=== PATIENT | female | born 1945 | race Caucasian/White ===

== ENCOUNTER → 2019-07-21 | Outpatient (CLI) | payer MEDICARE, OTHER ==
--- NOTE | 2019-07-21 16:46 | REP ---
REASON FOR EXAM: Chronic pain. There are no priors for comparison. There is marked asymmetric hip joint space narrowing with prominent marginal osteophytosis. There is buttressing. There is no acute fracture, dislocation, or subluxation. IMPRESSION: Advanced degenerative changes. Electronically Signed by Ollie Shelton DO 07/21/2019 05:13 P
--- NOTE | 2019-07-22 07:18 | REP ---
REASON: Chronic pain There is syndesmophyte and partial syndesmophyte formation seen on the right side of the imaged portion of the thoracic spine and upper lumbar spine. The bones are demineralized. I cannot confirm pedicular integrity due to the marked chronic changes. There is advanced disc space narrowing at every level. There are advanced disc space narrowing at every level. There are advanced degenerative changes seen involving the facet joints bilaterally at every level. Marked chronic changes and exam limitations as described above. Consider MRI for further evaluation. Electronically Signed by Ollie Shelton DO 07/24/2019 10:51 A
== END ==
LOC: M RAD 13:18
PROVIDERS: ATTEND Chiropractor
DX: M54.5 Low back pain (principal)

== ENCOUNTER → 2019-08-17 | Outpatient (CLI) | payer OTHER ==
--- NOTE | 2019-08-22 00:45 | ECWPNPC ---
PATIENT NAME: LUCIO JUDD : 1945 GENDER: FEMALE VISIT DATE: 08/17/2019 DISCHARGE DATE: 08/17/19 1054 VISIT LOCKED DATE TIME: PHYSICIAN: LEVY MEJIA RESOURCE: LEVY MEJIA REASON FOR APPOINTMENT 1. BACK PAIN HISTORY OF PRESENT ILLNESS GENERAL: -74-YEAR-OLD FEMALE IN FOR INITIAL PAIN CONSULT. SHE RATES HER PAIN CURRENTLY AT A 7 OUT OF 10 AND DESCRIBES IT ACHING, CONTINUOUS, AND DULL. PATIENT HAS BEEN ON TRAMADOL IN THE PAST FOR HER PAIN AND ADMITS THAT THIS WAS INEFFECTIVE. SHE ALSO ADMITS TO SPINAL INJECTIONS IN THE PAST WHICH WERE INEFFECTIVE. FALL RISK SCREENING: SCREENING :NO FALLS REPORTED IN THE LAST YEAR PAIN SCREENING: PATIENT HAS A COMPLAINT OF ACUTE OR CHRONIC PAIN :YES LOCATION OF PAIN:LOW BACK INTENSITY OF PAIN (SCALE OF 1 TO 10):7 WHAT DOES YOUR PAIN FEEL LIKE:ACHING, CONTINOUS DULL DURATION:CONTINOUS, CONSTANT, ALL DAY PAIN IS INCREASED BY:ACTIVITIES PAIN IS DECREASED BY:USE OF PAIN MEDICATIONS, SITTING TYLENOL PAIN HAS INTERFERED WITH THE FOLLOWING:MOOD, WALKING ABILITY, RELATIONSHIP WITH OTHERS, ENJOYMENT OF LIFE PLAN/GOALS/TREATMENT/INTERVENTION/FOLLOW UP:SEE PLAN NURSING NOTE: - - -. PAIN CENTER INTAKE QUESTIONS: DO YOU HAVE A HISTORY OF MRSA? :NO DO YOU TAKE A BLOOD THINNERS? :NO DO YOU HAVE ANY BLEEDING DISORDERS? :NO ANY NEW NUMBNESS OR WEAKNESS IN YOUR LEGS OR ARMS? :NO ANY PACEMAKER,DEFIBRILLATOR, OR DORSAL COLUMN STIMULATOR? :NO DO YOU HAVE ANY RASHES OR OPEN SORES? :NO ARE YOU ALLERGIC TO IV DYE? :NO ARE YOU DIABETIC? :NO ANY NEW PROBLEMS WITH YOUR MEDICATIONS? :NO HAVE YOU RECEIVED A VACCINE IN THE PAST 30 DAYS? :NO DO YOU PLAN TO RECEIVE A VACCINE IN THE NEXT 21 DAYS? :NO DO YOU NEED ANY PRESCRIPTION? :NO DO YOU TAKE ANY IMMUNOSUPPRESSIVE MEDICATIONS? :NO IS THERE A CHANCE YOU COULD BE ? :NO ARE YOU BREAST FEEDING? :NO CURRENT MEDICATIONS TAKING CENTRUM SILVER - TABLET DIRECTED ORALLY TAKING VITAMIN D3 10 MCG (400 UNIT) TABLET 1 TABLET ORALLY ONCE A DAY TAKING COQ-10 100 MG CAPSULE 2 CAPSULE WITH A MEAL ORALLY ONCE A DAY TAKING VITAMIN B-6 100 MG TABLET 1 TABLET ORALLY ONCE A DAY TAKING SIMVASTATIN 20 MG TABLET 1 TABLET IN THE EVENING ORALLY ONCE A DAY TAKING LISINOPRIL 20 MG TABLET 1 TABLET ORALLY ONCE A DAY TAKING SYNTHROID 100 MCG TABLET 1 TABLET IN THE MORNING ON AN EMPTY STOMACH ORALLY ONCE A DAY; LOWELL TAKING MELATONIN 5 MG TABLET 1 TABLET IN THE EVENING ORALLY ONCE A DAY TAKING TYLENOL EXTRA STRENGTH 500 MG TABLET 1 TABLET WITH ANOTHER 1 1/2 TAB OF RAPID RELEIF ORALLY DAILY TAKING SERTRALINE HCL 50 MG TABLET 1 TABLET ORALLY ONCE A DAY MEDICATION LIST REVIEWED AND RECONCILED WITH THE PATIENT PAST MEDICAL HISTORY HYPOTHYROIDISM HYPERTENSION HYPERLIPIDEMIA INSOMNIA HISTORY OF HYPERTHYROIDISM, NOW S/P RADIOACTIVE IODINE 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 1 SON(S) , 2 DAUGHTER(S) . DENIES ANY FAMILY HISTORY OF CANCER. SOCIAL HISTORY GENERAL: TOBACCO USE ARE YOU A:NONSMOKER LATEX QUESTIONNAIRE LATEX ALLERGY : HAVE YOU EVER DEVELOPED ANY TYPE OF REACTION AFTER HANDLING LATEX PRODUCTS SUCH RUBBER GLOVES, CONDOMS, DIAPHRAGMS, BALLOONS, SOCKS, OR UNDERWEAR?NO LATEX ALLERGY : HAVE YOU EVER DEVELOPED ANY TYPE OF REACTION DURING OR AFTER DENTAL APPOINTMENT, VAGINAL/RECTAL EXAMINATION, SURGICAL PROCEDURE, OR ANY OTHER EXPOSURE?NO LATEX RISK : HAVE YOU EVER HAD ANY DIFFICULTY BREATHING OR HIVES AFTER EATING OR HANDLING ANY FRUITS, OR VEGETABLES; SUCH KIWI, BANANAS, STONE FRUITS, OR CHESTNUTSNO LATEX RISK : DO YOU HAVE A PREVIOUS PERSONAL HISTORY OF MORE THAN NINE SURGERIES, SPINA BIFIDA, OR REPEATED CATHERIZATIONS? NO LATEX RISK : ARE YOU FREQUENTLY EXPOSED TO LATEX PRODUCTS IN YOUR OCCUPATION?NO DATE ASKED : 08/17/2019 CAFFEINE CAFFEINE USE?YES 2 CUP DAILY SEXUAL HX HAD SEX IN THE LAST 12 MONTHS (VAGINAL, ORAL, OR ANAL)?NO HAVE YOU EVER HAD AN STD?NO HIV / HEP-C SCREENING HIV TEST OFFERED TO PATIENT:YES DATE OFFERED:07/05/2019 TEST ACCEPTED:NO HEP-C TEST OFFERED TO PATIENT:NO REASON:PATIENT DECLINED BROCHURE PROVIDED TO PATIENTYES ZOROASTRIAN [id number] NONE LANGUAGE LANGUAGES SPOKEN:SYRIAC EDUCATION LEVEL OF EDUCATION:COLLEGE LEARNING BARRIERS / SPECIAL NEEDS BARRIERS TO LEARNING?NO HEARING IMPAIRED?NO VISION IMPAIRED?YES COGNITIVELY IMPAIRED?NO :CORRECTIVE LENSES READINESS TO LEARN?YES LEARNING PREFERENCES?NO LEARNING CAPABILITIES PRESENT?YES EMOTIONAL BARRIERS?NO SPECIAL DEVICES?YES :CANE UNDERWEAR HEMMER NEEDED?NO DOMESTIC VIOLENCE STATUS: OCCUPATION: RETIRED. DIET: REGULAR. EXERCISE: NO REGULAR EXERCISE. MARITAL STATUS: . OTHERS AT HOME: CHILD. PAIN CLINIC PFS, CLERGY, PUBLIC HEALTH REFERRALS PFS REFERRAL NEEDED?NO CLERGY REFERRAL NEEDED?NO PUBLIC HEALTH REFERRAL NEEDED?NO WAS THE PROVIDER NOTIFIED OF ANY PERTINENT INFO?YES HAS THE PATIENT BEEN EDUCATED REGARDING HIS/HER PLAN OF CARE?YES HAS THE PATIENT BEEN EDUCATED REGARDING PAIN, THE RISK FOR PAIN, THE IMPORTANCE OF EFFECTIVE PAIN MANAGEMENT, AND THE PAIN ASSESSMENT PROCESS?YES HOSPITALIZATION/MAJOR DIAGNOSTIC PROCEDURE SURGERY RELATED REVIEW OF SYSTEMS CONSTITUTIONAL: ANY RECENT FEVER NO . CHILLS NO . WEIGHT CHANGE OF UNKNOWN REASONS NO . MUSCULOSKELETAL: ANY UNUSUAL JOINT PAIN OR SWELLING NOT MENTIONED NO . SYSTEMIC LUPUS NO . ANY NEUROMUSCULAR DISORDER NOT MENTIONED NO . LYME DISEASE NO . GASTROENTEROLOGY: ANY NEW CHANGE IN BOWEL CONTROL? NO . HISTORY OF LIVER DISORDER NOT MENTIONED NO . HISTORY OF UNUSUAL ABDOMINAL PAIN OR CRAMPING NOT MENTIONED NO . NO CONSTIPATION. GENITOURINARY: ANY NEW CHANGE IN BLADDER CONTROL? NO . ANY RENAL/KIDNEY CONDITON NOT MENTIONED NO . NEUROLOGY: HISTORY OF TBI NOT MENTIONED NO . OTHER NEW NUMBNESS OR PAIN PATTERNS NOT MENTIONED NO . NEW ONSET DIZZINESS OR NEUROLOGICAL CHANGES NOT MENTIONED NO . HISTORY OF SEVERE HEADACHES NOT MENTIONED NO . HISTORY OF STROKE OR NEUROLOGICAL DISORDER NOT MENTIONED NO . CARDIOLOGY: HEART SURGERY NO . CONGESTIVE HEART FAILURE/FLUID OVERLOAD NOT MENTIONED NO . HISTORY OF CHEST PAIN,IRREGULAR HEART BEAT NOT MENTIONED NO . RESPIRATORY: SHORTNESS OF BREATH ON EXERTION, WHEEZES, UNUSUAL COUGH NOT MENTIONED NO . ENDOCRINOLOGY: ADRENAL GLAND OR THYROID DISORDERS NOT MENTIONED NO . UNUSUAL URINATION, DIZZINESS OR LETHARGY NOT MENTIONED NO . VITAL SIGNS WT 177.6 LBS, HT 60 IN, BMI 34.68 INDEX, BP 164/80 MM HG, HR 88 /MIN, RR 18 /MIN, TEMP 96.1 F, OXYGEN SAT % 97%, SAFE IN ENV? (Y/N) Y, NA INITIALS SC 10:16NANA ASUMADU ENROLLMENT ELIGIBILITY REPRESENTATIVE. EXAMINATION GENERAL EXAMINATION: GENERALNO ACUTE DISTRESS, WELL NOURISHED AND HYDRATED. PSYCHAPPROPRIATE MOOD AND AFFECT . LUNGS:CLEAR TO AUSCULTATION BILATERALLY, NO WHEEZES, RHONCHI, RALES. HEART:NO MURMURS, REGULAR RATE AND RHYTHM. BACK:DENIES POINT TENDERNESS ALONG LUMBAR SPINE, SURROUNDING SKIN SHOWS NO ERYTHEMA, ECCHYMOSIS, INCREASED WARMTH, AND/OR SKIN ERUPTIONS NOTED. . MUSCULOSKELETAL:NOTABLE WEAKNESS OF BOTH LOWER EXTREMITIES . ASSESSMENTS CHRONIC BILATERAL LOW BACK PAIN - M54.5 (PRIMARY) TREATMENT CHRONIC BILATERAL LOW BACK PAIN START DICLOFENAC SODIUM TABLET DELAYED RELEASE, 50 MG, 1 TABLET, ORALLY, TWICE A DAY, 30 DAY(S), 60 START TIZANIDINE HCL TABLET, 2 MG, 1 TABLET NEEDED, ORALLY, THREE TIMES A DAY, 30 DAYS, 90 TABLET [facility] MRI LUMBAR W/O CONTRAST (CPT [id number] CLINICAL NOTES: 74-YEAR-OLD FEMALE IN FOR INITIAL PAIN CONSULT. GIVEN PRESENTING SYMPTOMS AND RESULTS OF PHYSICAL EXAMINATION RECOMMENDED DICLOFENAC 50 MG TWICE A DAY, AND TIZANIDINE 2 MG 3 TIMES A DAY WITH FOLLOW-UP IN ONE MONTH TO DETERMINE EFFICACY OF TREATMENT. PATIENT HAS EXPRESSED UNDERSTANDING OF AND WAS IN AGREEMENT WITH TREATMENT PLAN. GIVEN TIME TO ASK QUESTIONS AND EXPRESS CONCERNS. PROCEDURE CODES FA211 ESTABILISHED PATIENT [facility] CHARGE DISPOSITION & COMMUNICATION FOLLOW UP 4 WEEKS (REASON: LOW BACK PAIN, LS MRI) ELECTRONICALLY SIGNED BY TANIA OSHEA ON 08/21/2019 AT 08:41 AM EDT DISCLAIMER : THIS IS A VISIT SUMMARY EXTRACTED FROM THE [employer] CHART. IT IS NOT A COPY OF THE [employer] PROGRESS NOTE. JOVANI
== END ==
LOC: M PAIN 10:00
PROVIDERS: ATTEND Family Medicine
DX: M54.5 Low back pain (principal)

== ENCOUNTER → 2019-09-15 | Outpatient (CLI) | payer OTHER | LOC: M PAIN 09:15 | PROVIDERS: ATTEND Family Medicine | DX: M54.5 Low back pain (principal) ==

== ENCOUNTER → 2019-11-03 | Outpatient (CLI) | payer OTHER | LOC: M PAIN 10:22 | PROVIDERS: ATTEND Family Medicine | DX: M54.5 Low back pain (principal) ==

== ENCOUNTER → 2019-12-05 | Outpatient (CLI) | payer OTHER ==
--- NOTE | 2019-12-06 13:17 | ECWPNPC ---
PATIENT NAME: LUCIO JUDD : 1945 GENDER: FEMALE VISIT DATE: 12/05/2019 DISCHARGE DATE: 12/05/19 1437 VISIT LOCKED DATE TIME: PHYSICIAN: LEVY MEJIA PHYSICIAN PAGER NO: ACTIVE RESOURCE: LEVY MEJIA REASON FOR APPOINTMENT 1. BACK HISTORY OF PRESENT ILLNESS GENERAL: - 74-YEAR-OLD FEMALE IN FOR CHRONIC PAIN FOLLOW-UP. SHE RATES HER PAIN CURRENTLY AT A 5 OUT OF 10 AND DESCRIBES IT A DULL ACHE. PATIENT DOES ADMIT THAT HER PAIN IS NOT COVERED PRIOR TO SLEEP WITH HER CURRENT MEDICATION REGIMEN. SHE DOES FEEL THE MEDICATION IS HELPFUL HOWEVER. FALL RISK SCREENING: SCREENING :ONE FALL WITHOUT INJURY IN THE PAST YEAR PATIENT FELL A MONTH AGO, DID NOT SEEK MEDICAL TREATMENT. ONLY RECIEVED BRUISING. PAIN SCREENING: PATIENT HAS A COMPLAINT OF ACUTE OR CHRONIC PAIN :YES LOCATION OF PAIN:LOW BACK, LEFT HIP, LEG(S), KNEES INTENSITY OF PAIN (SCALE OF 1 TO 10):5 WHAT DOES YOUR PAIN FEEL LIKE:OTHER DULL ACHE DURATION:CONSTANT, AWAKENS FROM SLEEP PAIN IS INCREASED BY:ACTIVITIES, PROLONGED STANDING PAIN IS DECREASED BY:USE OF PAIN MEDICATIONS NURSING NOTE: -. PAIN CENTER INTAKE QUESTIONS: DO YOU HAVE A HISTORY OF MRSA? :NO DO YOU TAKE A BLOOD THINNERS? :NO DO YOU HAVE ANY BLEEDING DISORDERS? :NO ANY NEW NUMBNESS OR WEAKNESS IN YOUR LEGS OR ARMS? :NO ANY PACEMAKER,DEFIBRILLATOR, OR DORSAL COLUMN STIMULATOR? :NO DO YOU HAVE ANY RASHES OR OPEN SORES? :NO ARE YOU ALLERGIC TO IV DYE? :NO ARE YOU DIABETIC? :NO ANY NEW PROBLEMS WITH YOUR MEDICATIONS? :YES PATIENT STATES SHE IS TAKING 4 HYDROCODONE PILLS A DAY INSTEAD OF THE WRITTEN AMOUNT OF 3. SHE SAYS THE PAIN IS UNBEARABLE AND HAS TO TAKE AN EXTRA DOSE. PATIENT WOULD LIKE TO DISCUSS INCREASE IN MEDICATION OR SOMETHING ELSE TO GO WITH THE HYDROCODONE. HAVE YOU RECEIVED A VACCINE IN THE PAST 30 DAYS? :NO DO YOU PLAN TO RECEIVE A VACCINE IN THE NEXT 21 DAYS? :YES PATIENT INTENDS TO GET A FLU SHOT SOON. DO YOU NEED ANY PRESCRIPTION? :NO DO YOU TAKE ANY IMMUNOSUPPRESSIVE MEDICATIONS? :NO IS THERE A CHANCE YOU COULD BE ? :NO ARE YOU BREAST FEEDING? :NO CURRENT MEDICATIONS TAKING CENTRUM SILVER - TABLET DIRECTED ORALLY TAKING VITAMIN D3 10 MCG (400 UNIT) TABLET 1 TABLET ORALLY ONCE A DAY TAKING COQ-10 100 MG CAPSULE 2 CAPSULE WITH A MEAL ORALLY ONCE A DAY TAKING VITAMIN B-6 100 MG TABLET 1 TABLET ORALLY ONCE A DAY TAKING SIMVASTATIN 20 MG TABLET 1 TABLET IN THE EVENING ORALLY ONCE A DAY TAKING LISINOPRIL 20 MG TABLET 1 TABLET ORALLY ONCE A DAY TAKING SYNTHROID 100 MCG TABLET 1 TABLET IN THE MORNING ON AN EMPTY STOMACH ORALLY ONCE A DAY; LOWELL TAKING MELATONIN 5 MG TABLET 1 TABLET IN THE EVENING ORALLY ONCE A DAY TAKING SERTRALINE HCL 50 MG TABLET 1 TABLET ORALLY ONCE A DAY TAKING TIZANIDINE HCL 2 MG TABLET 1 TABLET NEEDED ORALLY THREE TIMES A DAY TAKING HYDROCODONE-ACETAMINOPHEN 5-325 MG TABLET 1 TABLET NEEDED ORALLY THREE TIMES A DAY NOT-TAKING TYLENOL EXTRA STRENGTH 500 MG TABLET 1 TABLET WITH ANOTHER 1 1/2 TAB OF RAPID RELEIF ORALLY DAILY NOT-TAKING DICLOFENAC SODIUM 50 MG TABLET DELAYED RELEASE 1 TABLET ORALLY TWICE A DAY MEDICATION LIST REVIEWED AND RECONCILED WITH THE PATIENT PAST MEDICAL HISTORY HYPOTHYROIDISM HYPERTENSION HYPERLIPIDEMIA INSOMNIA HISTORY OF HYPERTHYROIDISM, NOW S/P RADIOACTIVE IODINE 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 1 SON(S) , 2 DAUGHTER(S) . DENIES ANY FAMILY HISTORY OF CANCER. SOCIAL HISTORY GENERAL: TOBACCO USE ARE YOU A:NONSMOKER LATEX QUESTIONNAIRE LATEX ALLERGY : HAVE YOU EVER DEVELOPED ANY TYPE OF REACTION AFTER HANDLING LATEX PRODUCTS SUCH RUBBER GLOVES, CONDOMS, DIAPHRAGMS, BALLOONS, SOCKS, OR UNDERWEAR?NO LATEX ALLERGY : HAVE YOU EVER DEVELOPED ANY TYPE OF REACTION DURING OR AFTER DENTAL APPOINTMENT, VAGINAL/RECTAL EXAMINATION, SURGICAL PROCEDURE, OR ANY OTHER EXPOSURE?NO LATEX RISK : HAVE YOU EVER HAD ANY DIFFICULTY BREATHING OR HIVES AFTER EATING OR HANDLING ANY FRUITS, OR VEGETABLES; SUCH KIWI, BANANAS, STONE FRUITS, OR CHESTNUTSNO LATEX RISK : DO YOU HAVE A PREVIOUS PERSONAL HISTORY OF MORE THAN NINE SURGERIES, SPINA BIFIDA, OR REPEATED CATHERIZATIONS? NO LATEX RISK : ARE YOU FREQUENTLY EXPOSED TO LATEX PRODUCTS IN YOUR OCCUPATION?NO DATE ASKED : 12/05/2019 CAFFEINE CAFFEINE USE?YES 2 CUP DAILY SEXUAL HX HAD SEX IN THE LAST 12 MONTHS (VAGINAL, ORAL, OR ANAL)?NO HAVE YOU EVER HAD AN STD?NO HIV / HEP-C SCREENING HIV TEST OFFERED TO PATIENT:YES DATE OFFERED:07/05/2019 TEST ACCEPTED:NO HEP-C TEST OFFERED TO PATIENT:NO REASON:PATIENT DECLINED BROCHURE PROVIDED TO PATIENTYES [employer]NA[employer]IST [id number] NONE LANGUAGE LANGUAGES SPOKEN:NIGERIAN EDUCATION LEVEL OF EDUCATION:COLLEGE LEARNING BARRIERS / SPECIAL NEEDS BARRIERS TO LEARNING?NO HEARING IMPAIRED?NO VISION IMPAIRED?YES COGNITIVELY IMPAIRED?NO :CORRECTIVE LENSES READINESS TO LEARN?YES LEARNING PREFERENCES?NO LEARNING CAPABILITIES PRESENT?YES EMOTIONAL BARRIERS?NO SPECIAL DEVICES?YES :CANE MANAGER GOVERNMENT NEEDED?NO DOMESTIC VIOLENCE STATUS: DO YOU FEEL SAFE IN YOUR ENVIRONMENT?YES OCCUPATION: RETIRED. DIET: REGULAR. EXERCISE: NO REGULAR EXERCISE. MARITAL STATUS: . OTHERS AT HOME: CHILD. PAIN CLINIC PFS, CLERGY, PUBLIC HEALTH REFERRALS PFS REFERRAL NEEDED?NO CLERGY REFERRAL NEEDED?NO PUBLIC HEALTH REFERRAL NEEDED?NO WAS THE PROVIDER NOTIFIED OF ANY PERTINENT INFO?YES HAS THE PATIENT BEEN EDUCATED REGARDING HIS/HER PLAN OF CARE?YES HAS THE PATIENT BEEN EDUCATED REGARDING PAIN, THE RISK FOR PAIN, THE IMPORTANCE OF EFFECTIVE PAIN MANAGEMENT, AND THE PAIN ASSESSMENT PROCESS?YES ADVANCE DIRECTIVE ADVANCE DIRECTIVE DISCUSSED WITH PATIENT:YES DAUGHTERSHRUTHI HOSPITALIZATION/MAJOR DIAGNOSTIC PROCEDURE SURGERY RELATED REVIEW OF SYSTEMS CONSTITUTIONAL: ANY RECENT FEVER NO . CHILLS NO . WEIGHT CHANGE OF UNKNOWN REASONS NO . GASTROENTEROLOGY: NEW UNEXPLAINABLE CHANGES IN BOWEL CONTROL NO . CONSTIPATION NO . GENITOURINARY: ANY NEW CHANGE IN BLADDER CONTROL? NO . NEUROLOGY: NEW ONSET DIZZINESS OR NEUROLOGICAL CHANGES NOT MENTIONED NO . NEW NUMBNESS OR PAIN PATTERNS NOT MENTIONED AND PERTINENT TO TODAY'S VISIT NO . CARDIOLOGY: NEW CHEST PRESSURE NO . NEW CHEST PAIN NO . RESPIRATORY: UNEXPLAINABLE COUGH NO . NEW SHORTNESS OF BREATH NO . VITAL SIGNS WT 177.8 LBS, HT 60 IN, BMI 34.72 INDEX, BP 159/84 MM HG, HR 82 /MIN, RR 18 /MIN, TEMP 97.0 F, OXYGEN SAT % 98%, SAFE IN ENV? (Y/N) YES, NA INITIALS AW 1330, REVIEWED BY: DM. EXAMINATION GENERAL EXAMINATION: GENERALNO ACUTE DISTRESS, WELL NOURISHED AND HYDRATED. PSYCHAPPROPRIATE MOOD AND AFFECT . LUNGS:CLEAR TO AUSCULTATION BILATERALLY, NO WHEEZES, RHONCHI, RALES. HEART:NO MURMURS, REGULAR RATE AND RHYTHM. ASSESSMENTS LUMBAGO WITH SCIATICA, LEFT SIDE - M54.42 (PRIMARY) TREATMENT LUMBAGO WITH SCIATICA, LEFT SIDE INCREASE HYDROCODONE-ACETAMINOPHEN TABLET, 7.5-325 MG, 1 TABLET NEEDED, ORALLY, THREE TIMES A DAY, 30 DAYS, 90 CLINICAL NOTES: 74 OLD FEMALE IN FOR CHRONIC PAIN FOLLOW-UP. GIVEN PRESENTING SYMPTOMS RECOMMEND INCREASING NORCO 7.5/325 3 TIMES A DAY WITH FOLLOW-UP IN ONE MONTH TO DETERMINE EFFICACY TREATMENT. PATIENT HAS EXPRESSED UNDERSTANDING OF AND WAS IN AGREEMENT WITH TREATMENT PLAN. GIVEN TIME TO ASK QUESTIONS AND EXPRESS CONCERNS. , ISTOP REGISTRY REVIEWED AND DEMONSTRATES COMPLLIANCE. (REF # [id number] ) BRINGS IN MEDICATIONS WHICH IS APPROPRIATE FOR WHAT WAS DISPENSED. RECENT URINE TOXICOLOGY REVIEWED. NO UNAUTHORIZED MEDICATIONS. NO ILLICIT SUBSTANCES AND PRESCRIBED MEDICATIONS WERE PRESENT. PREVENTIVE MEDICINE PAIN CLINIC TEACHING: THE PATIENT HAS BEEN EDUCATED REGARDING PAIN, THE RISK FOR PAIN, THE IMPORTANCE OF EFFECTIVE PAIN MANAGEMENT, AND THE PAIN ASSESSMENT PROCESS. : DISCUSSED CARE PLAN WITH PATIENT, PATIENT VERBALIZES UNDERSTANDING. PROCEDURE CODES FA211 ESTABILISHED PATIENT [facility] CHARGE DISPOSITION & COMMUNICATION FOLLOW UP 4 WEEKS (REASON: BACK PAIN, MEDICATION INCREASE) ELECTRONICALLY SIGNED BY TANIA OSHEA ON 12/06/2019 AT 10:09 AM EDT DISCLAIMER : THIS IS A VISIT SUMMARY EXTRACTED FROM THE [employer] CHART. IT IS NOT A COPY OF THE [employer] PROGRESS NOTE. JOVANI
== END ==
LOC: M PAIN 13:30
PROVIDERS: ATTEND Family Medicine
DX: M54.42 Lumbago with sciatica, left side (principal); E89.0 Postprocedural hypothyroidism; I10 Essential (primary) hypertension; E78.5 Hyperlipidemia, unspecified; G47.00 Insomnia, unspecified; Z79.891 Long term (current) use of opiate analgesic; Z79.899 Other long term (current) drug therapy; Z88.2 Allergy status to sulfonamides

== ENCOUNTER → 2019-12-12 | Outpatient (REF) | payer OTHER ==
[2019-12-12 15:24] LABS: HEMATOCRIT 37.2 % (36.0-47.0); HEMOGLOBIN 11.7 g/dl (12.0-15.5); MEAN CORPUSCULAR HEMOGLOBIN 31.6 pg (27.0-33.0); MEAN CORPUSCULAR HGB CONC 31.5 g/dl (32.0-36.5); MEAN CORPUSCULAR VOLUME 100.5 fl (80.0-96.0); PLATELET COUNT, AUTOMATED 252 10^3/uL (150-450); WHITE BLOOD COUNT 6.7 10^3/uL (4.0-10.0)
[2019-12-12 15:56] LABS: FREE T4 1.04 NG/DL (0.76-1.46); PERCENT SATURATION 22.2 % (13.2-45.0); THYROID STIMULATING HORMONE 0.449 uIU/ML (0.358-3.740)
== END ==
LOC: M SFHCPLAZ 14:03
PROVIDERS: ATTEND Family Medicine
DX: R53.83 Other fatigue (principal); E03.9 Hypothyroidism, unspecified; L65.9 Nonscarring hair loss, unspecified; Z23 Encounter for immunization
CPT/HCPCS: 36415; 82728; 83550; 84439; 84443; 85027; 90682; 90732; G0008; G0009; G0463

== ENCOUNTER → 2020-01-09 | Outpatient (CLI) | payer OTHER ==
--- NOTE | 2020-01-11 02:55 | ECWPNPC ---
PATIENT NAME: LUCIO JUDD : 1945 GENDER: FEMALE VISIT DATE: 01/09/2020 DISCHARGE DATE: 01/09/20 1443 VISIT LOCKED DATE TIME: PHYSICIAN: LEVY MEJIA PHYSICIAN PAGER NO: ACTIVE RESOURCE: LEVY MEJIA REASON FOR APPOINTMENT 1. BACK PAIN/MEDICATION HISTORY OF PRESENT ILLNESS PAIN CENTER INTAKE QUESTIONS: 74-YEAR-OLD FEMALE IN FOR CHRONIC PAIN FOLLOW-UP. SHE RATES HER PAIN CURRENTLY AT A 5 OUT OF 10 AND DESCRIBES IT ACHING. SHE FEELS HER MEDICATIONS ARE HELPFUL SHE DOES ADMIT TO INTERMITTENT SUPPLEMENTATION WITH IBUPROFEN. GENERAL: -. FALL RISK SCREENING: SCREENING :ONE FALL WITHOUT INJURY IN THE PAST YEAR PAIN SCREENING: PATIENT HAS A COMPLAINT OF ACUTE OR CHRONIC PAIN :YES LOCATION OF PAIN: WHOLE BODY INTENSITY OF PAIN (SCALE OF 1 TO 10):5 WHAT DOES YOUR PAIN FEEL LIKE:ACHING DURATION:CONTINOUS, CONSTANT PAIN IS INCREASED BY:ACTIVITIES, OTHERS WEATHER PAIN IS DECREASED BY:USE OF PAIN MEDICATIONS, OTHERS LAYING DOWN TREATMENT/MEDICATIONS USED TO MANAGE PAIN:OPIOIDS LEVEL OF RELIEF FROM PAIN TREATMENTS IN THE PAST:50% PAIN HAS INTERFERED WITH THE FOLLOWING:BATHING/DRESSING, WALKING ABILITY, HOUSEWORK, SLEEP, TRANSPORTATION, TOILETING NURSING NOTE: -. CURRENT MEDICATIONS TAKING CENTRUM SILVER - TABLET DIRECTED ORALLY TAKING VITAMIN D3 10 MCG (400 UNIT) TABLET 1 TABLET ORALLY ONCE A DAY TAKING COQ-10 100 MG CAPSULE 2 CAPSULE WITH A MEAL ORALLY ONCE A DAY TAKING VITAMIN B-6 100 MG TABLET 1 TABLET ORALLY ONCE A DAY TAKING SYNTHROID 100 MCG TABLET 1 TABLET IN THE MORNING ON AN EMPTY STOMACH ORALLY ONCE A DAY; LOWELL TAKING MELATONIN 5 MG TABLET 1 TABLET IN THE EVENING ORALLY ONCE A DAY TAKING SERTRALINE HCL 50 MG TABLET 1 TABLET ORALLY ONCE A DAY TAKING LISINOPRIL 20 MG TABLET TAKE 1 TABLET EVERY DAY TAKING SIMVASTATIN 20 MG TABLET TAKE 1 TABLET IN THE EVENING TAKING HYDROCODONE-ACETAMINOPHEN 7.5-325 MG TABLET 1 TABLET NEEDED ORALLY THREE TIMES A DAY TAKING MAGNESIUM 300 MG CAPSULE 1 CAPSULE WITH A MEAL ORALLY ONCE A DAY, NOTES: NOT SURE OF DOSE TAKING ADVIL 200 MG TABLET 1 TABLET WITH FOOD OR MILK NEEDED ORALLY THREE TIMES A DAY NOT-TAKING TIZANIDINE HCL 2 MG TABLET 1 TABLET NEEDED ORALLY THREE TIMES A DAY NOT-TAKING TYLENOL EXTRA STRENGTH 500 MG TABLET 1 TABLET WITH ANOTHER 1 1/2 TAB OF RAPID RELEIF ORALLY DAILY NOT-TAKING DICLOFENAC SODIUM 50 MG TABLET DELAYED RELEASE 1 TABLET ORALLY TWICE A DAY MEDICATION LIST REVIEWED AND RECONCILED WITH THE PATIENT PAST MEDICAL HISTORY HYPOTHYROIDISM HYPERTENSION HYPERLIPIDEMIA INSOMNIA HISTORY OF HYPERTHYROIDISM, NOW S/P RADIOACTIVE IODINE 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 1 SON(S) , 2 DAUGHTER(S) . DENIES ANY FAMILY HISTORY OF CANCER. SOCIAL HISTORY GENERAL: TOBACCO USE ARE YOU A:NONSMOKER LATEX QUESTIONNAIRE LATEX ALLERGY : HAVE YOU EVER DEVELOPED ANY TYPE OF REACTION AFTER HANDLING LATEX PRODUCTS SUCH RUBBER GLOVES, CONDOMS, DIAPHRAGMS, BALLOONS, SOCKS, OR UNDERWEAR?NO LATEX ALLERGY : HAVE YOU EVER DEVELOPED ANY TYPE OF REACTION DURING OR AFTER DENTAL APPOINTMENT, VAGINAL/RECTAL EXAMINATION, SURGICAL PROCEDURE, OR ANY OTHER EXPOSURE?NO LATEX RISK : HAVE YOU EVER HAD ANY DIFFICULTY BREATHING OR HIVES AFTER EATING OR HANDLING ANY FRUITS, OR VEGETABLES; SUCH KIWI, BANANAS, STONE FRUITS, OR CHESTNUTSNO LATEX RISK : DO YOU HAVE A PREVIOUS PERSONAL HISTORY OF MORE THAN NINE SURGERIES, SPINA BIFIDA, OR REPEATED CATHERIZATIONS? NO LATEX RISK : ARE YOU FREQUENTLY EXPOSED TO LATEX PRODUCTS IN YOUR OCCUPATION?NO DATE ASKED : 12/05/2019 CAFFEINE CAFFEINE USE?YES 2 CUP DAILY SEXUAL HX HAD SEX IN THE LAST 12 MONTHS (VAGINAL, ORAL, OR ANAL)?NO HAVE YOU EVER HAD AN STD?NO HIV / HEP-C SCREENING HIV TEST OFFERED TO PATIENT:YES DATE OFFERED:07/05/2019 TEST ACCEPTED:NO REASON:PATIENT DECLINED BROCHURE PROVIDED TO PATIENTYES HEP-C TEST OFFERED TO PATIENT:NO JEWISH [id number] NONE LANGUAGE LANGUAGES SPOKEN:ICELANDIC EDUCATION LEVEL OF EDUCATION:COLLEGE LEARNING BARRIERS / SPECIAL NEEDS BARRIERS TO LEARNING?NO HEARING IMPAIRED?NO VISION IMPAIRED?YES :CORRECTIVE LENSES COGNITIVELY IMPAIRED?NO READINESS TO LEARN?YES LEARNING PREFERENCES?NO LEARNING CAPABILITIES PRESENT?YES EMOTIONAL BARRIERS?NO SPECIAL DEVICES?YES :CANE WALKER RAISED TOILET SEAT PILE DRIVING SETTER NEEDED?NO DOMESTIC VIOLENCE STATUS: DO YOU FEEL SAFE IN YOUR ENVIRONMENT?YES OCCUPATION: RETIRED. DIET: REGULAR. EXERCISE: NO REGULAR EXERCISE. MARITAL STATUS: . OTHERS AT HOME: CHILD. PAIN CLINIC PFS, CLERGY, PUBLIC HEALTH REFERRALS PFS REFERRAL NEEDED?NO CLERGY REFERRAL NEEDED?NO PUBLIC HEALTH REFERRAL NEEDED?NO WAS THE PROVIDER NOTIFIED OF ANY PERTINENT INFO?YES HAS THE PATIENT BEEN EDUCATED REGARDING HIS/HER PLAN OF CARE?YES HAS THE PATIENT BEEN EDUCATED REGARDING PAIN, THE RISK FOR PAIN, THE IMPORTANCE OF EFFECTIVE PAIN MANAGEMENT, AND THE PAIN ASSESSMENT PROCESS?YES ADVANCE DIRECTIVE ADVANCE DIRECTIVE DISCUSSED WITH PATIENT:YES DAUGHTERSHRUTHI HOSPITALIZATION/MAJOR DIAGNOSTIC PROCEDURE SURGERY RELATED REVIEW OF SYSTEMS CONSTITUTIONAL: ANY RECENT FEVER NO . CHILLS NO . WEIGHT CHANGE OF UNKNOWN REASONS NO . GASTROENTEROLOGY: NEW UNEXPLAINABLE CHANGES IN BOWEL CONTROL NO . CONSTIPATION NO . GENITOURINARY: ANY NEW CHANGE IN BLADDER CONTROL? NO . NEUROLOGY: NEW ONSET DIZZINESS OR NEUROLOGICAL CHANGES NOT MENTIONED NO . NEW NUMBNESS OR PAIN PATTERNS NOT MENTIONED AND PERTINENT TO TODAY'S VISIT NO . CARDIOLOGY: NEW CHEST PRESSURE NO . NEW CHEST PAIN NO . RESPIRATORY: UNEXPLAINABLE COUGH NO . NEW SHORTNESS OF BREATH NO . VITAL SIGNS WT 171.8 LBS, HT 60 IN, BMI 33.55 INDEX, BP 169/82 MM HG, HR 92 /MIN, RR 18 /MIN, TEMP 92 F, OXYGEN SAT % 97%, SAFE IN ENV? (Y/N) Y, NA INITIALS VT 13:29, REVIEWED BY: SHAHRZAD. EXAMINATION GENERAL EXAMINATION: GENERALNO ACUTE DISTRESS, WELL NOURISHED AND HYDRATED. PSYCHAPPROPRIATE MOOD AND AFFECT . LUNGS:CLEAR TO AUSCULTATION BILATERALLY, NO WHEEZES, RHONCHI, RALES. HEART:NO MURMURS, REGULAR RATE AND RHYTHM. ASSESSMENTS LUMBAGO WITH SCIATICA, LEFT SIDE - M54.42 (PRIMARY) TREATMENT LUMBAGO WITH SCIATICA, LEFT SIDE LAB: PAIN CENTER URINE TOX (SEND OUT) NOTES: 74-YEAR-OLD FEMALE IN FOR CHRONIC PAIN FOLLOW-UP. GIVEN PRESENTING SYMPTOMS RECOMMEND CONTINUATION OF CURRENT MEDICATION REGIMEN WITH FOLLOW-UP IN 2 MONTHS. PATIENT HAS EXPRESSED UNDERSTANDING OF AND WAS IN AGREEMENT WITH TREATMENT PLAN. GIVEN TIME TO ASK QUESTIONS AND EXPRESS CONCERNS. , ISTOP REGISTRY REVIEWED AND DEMONSTRATES COMPLLIANCE. (REF # [id number] ) BRINGS IN MEDICATIONS WHICH IS APPROPRIATE FOR WHAT WAS DISPENSED. RECENT URINE TOXICOLOGY REVIEWED. NO UNAUTHORIZED MEDICATIONS. NO ILLICIT SUBSTANCES AND PRESCRIBED MEDICATIONS WERE PRESENT. PROCEDURE CODES FA211 ESTABILISHED PATIENT [facility] CHARGE DISPOSITION & COMMUNICATION FOLLOW UP 2 MONTHS (REASON: BACK PAIN) ELECTRONICALLY SIGNED BY TANIA OSHEA ON 01/10/2020 AT 01:05 PM EST DISCLAIMER : THIS IS A VISIT SUMMARY EXTRACTED FROM THE [employer] CHART. IT IS NOT A COPY OF THE [employer] PROGRESS NOTE. JOVANI
== END ==
LOC: M PAIN 13:30
PROVIDERS: ATTEND Family Medicine
DX: M54.42 Lumbago with sciatica, left side (principal); G89.29 Other chronic pain; E03.9 Hypothyroidism, unspecified; G47.00 Insomnia, unspecified; Z96.651 Presence of right artificial knee joint; Z88.2 Allergy status to sulfonamides; Z79.899 Other long term (current) drug therapy

== ENCOUNTER → 2020-02-27 | Outpatient (REF) | payer OTHER ==
[2020-02-27 14:43] LABS: HEMATOCRIT 35.5 % (36.0-47.0)
== END ==
LOC: M PLALAB 13:34
PROVIDERS: ATTEND Family Medicine
DX: D53.9 Nutritional anemia, unspecified (principal)
CPT/HCPCS: 36415; 82607; 82747; G0463

== ENCOUNTER → 2020-03-08 | Outpatient (CLI) | payer OTHER ==
--- NOTE | 2020-03-12 03:31 | ECWPNPC ---
PATIENT NAME: LUCIO JUDD : 1945 GENDER: FEMALE VISIT DATE: 03/08/2020 DISCHARGE DATE: 03/08/20 1552 VISIT LOCKED DATE TIME: PHYSICIAN: LEVY MEJIA PHYSICIAN PAGER NO: ACTIVE RESOURCE: LEVY MEJIA REASON FOR APPOINTMENT 1. BACK PAIN HISTORY OF PRESENT ILLNESS GENERAL: - 74-YEAR-OLD FEMALE IN FOR CHRONIC PAIN FOLLOW-UP. SHE RATES HER PAIN CURRENTLY AT A 6 OUT OF 10 AND DESCRIBES IT ACHING, BURNING, AND CONTINUOUS. SHE FEELS HER MEDICATIONS ARE HELPFUL BUT DOES ADMITS TO BREAKTHROUGH PAIN AT TIMES. FALL RISK SCREENING: SCREENING :TWO OR MORE FALLS WITH INJURY IN THE PAST YEAR PATIENT DID NOT SEEK MEDICAL TREATMENT. PAIN SCREENING: PATIENT HAS A COMPLAINT OF ACUTE OR CHRONIC PAIN :YES LOCATION OF PAIN:BACK, OTHER: RIGHT ARM INTENSITY OF PAIN (SCALE OF 1 TO 10):6 WHAT DOES YOUR PAIN FEEL LIKE:ACHING, BURNING, CONTINOUS DURATION:CONTINOUS, CONSTANT, AWAKENS FROM SLEEP PAIN IS INCREASED BY:ACTIVITIES PAIN IS DECREASED BY:USE OF PAIN MEDICATIONS HYDROCODONE, BIOFREEZE, ADVIL PM TREATMENT/MEDICATIONS USED TO MANAGE PAIN:OTC PAIN RELIEVERS, OPIOIDS LEVEL OF RELIEF FROM PAIN TREATMENTS IN THE PAST:50% NURSING NOTE: -. PAIN CENTER INTAKE QUESTIONS: DO YOU HAVE A HISTORY OF MRSA? :NO DO YOU TAKE A BLOOD THINNERS? :NO DO YOU HAVE ANY BLEEDING DISORDERS? :NO ANY NEW NUMBNESS OR WEAKNESS IN YOUR LEGS OR ARMS? :YES RIGHT ARM WEAKNESS ANY PACEMAKER,DEFIBRILLATOR, OR DORSAL COLUMN STIMULATOR? :NO DO YOU HAVE ANY RASHES OR OPEN SORES? :NO ARE YOU ALLERGIC TO IV DYE? :NO ARE YOU DIABETIC? :NO ANY NEW PROBLEMS WITH YOUR MEDICATIONS? :NO HAVE YOU RECEIVED A VACCINE IN THE PAST 30 DAYS? :NO DO YOU PLAN TO RECEIVE A VACCINE IN THE NEXT 21 DAYS? :YES WOULD LIKE THE COVID VACCINATION WHEN AVAILABLE. DO YOU NEED ANY PRESCRIPTION? :NO DO YOU TAKE ANY IMMUNOSUPPRESSIVE MEDICATIONS? :NO IS THERE A CHANCE YOU COULD BE ? :NO ARE YOU BREAST FEEDING? :NO 74-YEAR-OLD FEMALE IN FOR CHRONIC PAIN FOLLOW-UP. SHE RATES HER PAIN CURRENTLY AT A 5 OUT OF 10 AND DESCRIBES IT ACHING. SHE FEELS HER MEDICATIONS ARE HELPFUL SHE DOES ADMIT TO INTERMITTENT SUPPLEMENTATION WITH IBUPROFEN. CURRENT MEDICATIONS TAKING CENTRUM SILVER - TABLET DIRECTED ORALLY TAKING VITAMIN D3 10 MCG (400 UNIT) TABLET 1 TABLET ORALLY ONCE A DAY TAKING COQ-10 100 MG CAPSULE 2 CAPSULE WITH A MEAL ORALLY ONCE A DAY TAKING VITAMIN B-6 100 MG TABLET 1 TABLET ORALLY ONCE A DAY TAKING LISINOPRIL 20 MG TABLET TAKE 1 TABLET EVERY DAY TAKING SIMVASTATIN 20 MG TABLET TAKE 1 TABLET IN THE EVENING TAKING MAGNESIUM 300 MG CAPSULE 1 CAPSULE WITH A MEAL ORALLY ONCE A DAY, NOTES: NOT SURE OF DOSE TAKING ADVIL 200 MG TABLET 1 TABLET WITH FOOD OR MILK NEEDED ORALLY THREE TIMES A DAY TAKING SYNTHROID 100 MCG TABLET 1 TABLET IN THE MORNING ON AN EMPTY STOMACH ORALLY ONCE A DAY; LOWELL TAKING HYDROCODONE-ACETAMINOPHEN 7.5-325 MG TABLET 1 TABLET NEEDED ORALLY THREE TIMES A DAY TAKING MELATONIN 5 MG TABLET 1 TABLET IN THE EVENING ORALLY ONCE A DAY TAKING SERTRALINE HCL 100 MG TABLET TAKE ONE TABLET BY MOUTH EVERY DAY NOT-TAKING TIZANIDINE HCL 2 MG TABLET 1 TABLET NEEDED ORALLY THREE TIMES A DAY NOT-TAKING TYLENOL EXTRA STRENGTH 500 MG TABLET 1 TABLET WITH ANOTHER 1 1/2 TAB OF RAPID RELEIF ORALLY DAILY NOT-TAKING DICLOFENAC SODIUM 50 MG TABLET DELAYED RELEASE 1 TABLET ORALLY TWICE A DAY MEDICATION LIST REVIEWED AND RECONCILED WITH THE PATIENT PAST MEDICAL HISTORY HYPOTHYROIDISM HYPERTENSION HYPERLIPIDEMIA INSOMNIA HISTORY OF HYPERTHYROIDISM, NOW S/P RADIOACTIVE IODINE 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 1 SON(S) , 2 DAUGHTER(S) . DENIES ANY FAMILY HISTORY OF CANCER. SON 01/2020. SOCIAL HISTORY GENERAL: TOBACCO USE ARE YOU A:NONSMOKER LATEX QUESTIONNAIRE LATEX ALLERGY : HAVE YOU EVER DEVELOPED ANY TYPE OF REACTION AFTER HANDLING LATEX PRODUCTS SUCH RUBBER GLOVES, CONDOMS, DIAPHRAGMS, BALLOONS, SOCKS, OR UNDERWEAR?NO LATEX ALLERGY : HAVE YOU EVER DEVELOPED ANY TYPE OF REACTION DURING OR AFTER DENTAL APPOINTMENT, VAGINAL/RECTAL EXAMINATION, SURGICAL PROCEDURE, OR ANY OTHER EXPOSURE?NO LATEX RISK : HAVE YOU EVER HAD ANY DIFFICULTY BREATHING OR HIVES AFTER EATING OR HANDLING ANY FRUITS, OR VEGETABLES; SUCH KIWI, BANANAS, STONE FRUITS, OR CHESTNUTSNO LATEX RISK : DO YOU HAVE A PREVIOUS PERSONAL HISTORY OF MORE THAN NINE SURGERIES, SPINA BIFIDA, OR REPEATED CATHERIZATIONS? NO LATEX RISK : ARE YOU FREQUENTLY EXPOSED TO LATEX PRODUCTS IN YOUR OCCUPATION?NO DATE ASKED : 03/08/2020 CAFFEINE CAFFEINE USE?YES 2 CUP DAILY SEXUAL HX HAD SEX IN THE LAST 12 MONTHS (VAGINAL, ORAL, OR ANAL)?NO HAVE YOU EVER HAD AN STD?NO HIV / HEP-C SCREENING HIV TEST OFFERED TO PATIENT:YES DATE OFFERED:07/05/2019 TEST ACCEPTED:NO HEP-C TEST OFFERED TO PATIENT:NO REASON:PATIENT DECLINED BROCHURE PROVIDED TO PATIENTYES [employer] [id number] NONE LANGUAGE LANGUAGES SPOKEN:OCCITAN EDUCATION LEVEL OF EDUCATION:COLLEGE LEARNING BARRIERS / SPECIAL NEEDS CHANGE FROM LAST VISIT?NO BARRIERS TO LEARNING?NO HEARING IMPAIRED?NO VISION IMPAIRED?YES :CORRECTIVE LENSES COGNITIVELY IMPAIRED?NO READINESS TO LEARN?YES LEARNING PREFERENCES?NO LEARNING CAPABILITIES PRESENT?YES EMOTIONAL BARRIERS?NO SPECIAL DEVICES?YES :CANE WALKER RAISED TOILET SEAT ENERGY PROJECT ENGINEER NEEDED?NO DOMESTIC VIOLENCE STATUS: DO YOU FEEL SAFE IN YOUR ENVIRONMENT?YES OCCUPATION: RETIRED. DIET: REGULAR. EXERCISE: NO REGULAR EXERCISE. MARITAL STATUS: . OTHERS AT HOME: CHILD. - PFS REFERRAL NEEDED?NO CLERGY REFERRAL NEEDED?NO PUBLIC HEALTH REFERRAL NEEDED?NO WAS THE PROVIDER NOTIFIED OF ANY PERTINENT INFO?YES HAS THE PATIENT BEEN EDUCATED REGARDING HIS/HER PLAN OF CARE?YES HAS THE PATIENT BEEN EDUCATED REGARDING PAIN, THE RISK FOR PAIN, THE IMPORTANCE OF EFFECTIVE PAIN MANAGEMENT, AND THE PAIN ASSESSMENT PROCESS?YES ADVANCE DIRECTIVE ADVANCE DIRECTIVE DISCUSSED WITH PATIENT:YES DAUGHTERSHRUTHI REVIEW OF SYSTEMS CONSTITUTIONAL: ANY RECENT FEVER NO . CHILLS NO . WEIGHT CHANGE OF UNKNOWN REASONS NO . GASTROENTEROLOGY: NEW UNEXPLAINABLE CHANGES IN BOWEL CONTROL NO . CONSTIPATION NO . GENITOURINARY: ANY NEW CHANGE IN BLADDER CONTROL? NO . NEUROLOGY: NEW ONSET DIZZINESS OR NEUROLOGICAL CHANGES NOT MENTIONED NO . NEW NUMBNESS OR PAIN PATTERNS NOT MENTIONED AND PERTINENT TO TODAY'S VISIT NO . CARDIOLOGY: NEW CHEST PRESSURE NO . NEW CHEST PAIN NO . RESPIRATORY: UNEXPLAINABLE COUGH NO . NEW SHORTNESS OF BREATH NO . VITAL SIGNS WT 174.8 LBS, HT 60 IN, BMI 34.13 INDEX, BP 137/78 MM HG, HR 91 /MIN, RR 18 /MIN, TEMP 98.5 F, OXYGEN SAT % 95%, SAFE IN ENV? (Y/N) YES, NA INITIALS NM 14:31, REVIEWED BY: MINERVA LEMUS MA. EXAMINATION GENERAL EXAMINATION: GENERALNO ACUTE DISTRESS, WELL NOURISHED AND HYDRATED. PSYCHAPPROPRIATE MOOD AND AFFECT . LUNGS:CLEAR TO AUSCULTATION BILATERALLY, NO WHEEZES, RHONCHI, RALES. HEART:NO MURMURS, REGULAR RATE AND RHYTHM. ASSESSMENTS CHRONIC BILATERAL LOW BACK PAIN - M54.5 (PRIMARY) TREATMENT CHRONIC BILATERAL LOW BACK PAIN NOTES: 74-YEAR-OLD FEMALE IN FOR CHRONIC PAIN FOLLOW-UP. GIVEN PRESENTING SYMPTOMS RECOMMEND INCREASING MDD TO 4 TABLETS DAILY NEEDED FOR PAIN WITH FOLLOW-UP IN 2 MONTHS. PATIENT HAS EXPRESSED UNDER STANDING OF AND WAS IN AGREEMENT WITH TREATMENT PLAN. GIVEN TIME TO ASK QUESTIONS AND EXPRESS CONCERNS. , ISTOP REGISTRY REVIEWED AND DEMONSTRATES COMPLLIANCE. (REF # [id number] ) BRINGS IN MEDICATIONS WHICH IS APPROPRIATE FOR WHAT WAS DISPENSED. RECENT URINE TOXICOLOGY REVIEWED. NO UNAUTHORIZED MEDICATIONS. NO ILLICIT SUBSTANCES AND PRESCRIBED MEDICATIONS WERE PRESENT. OTHERS INCREASE HYDROCODONE-ACETAMINOPHEN TABLET, 7.5-325 MG, 1 TABLET NEEDED, ORALLY, EVERY 6 HRS PRN MDD4, 30 DAYS DAY(S), 120 PROCEDURE CODES FA211 ESTABILISHED PATIENT [facility] CHARGE DISPOSITION & COMMUNICATION FOLLOW UP 2 MONTHS (REASON: BACK PAIN ) ELECTRONICALLY SIGNED BY TANIA OSHEA ON 03/11/2020 AT 01:03 PM EST DISCLAIMER : THIS IS A VISIT SUMMARY EXTRACTED FROM THE [employer] CHART. IT IS NOT A COPY OF THE [employer] PROGRESS NOTE. MTDD
== END ==
LOC: M PAIN 14:30
PROVIDERS: ATTEND Family Medicine
DX: M54.5 Low back pain (principal); G89.29 Other chronic pain; E03.9 Hypothyroidism, unspecified; G47.00 Insomnia, unspecified; Z88.2 Allergy status to sulfonamides; Z79.899 Other long term (current) drug therapy

== ENCOUNTER → 2020-05-07 | Outpatient (CLI) | payer OTHER ==
--- NOTE | 2020-05-10 04:51 | ECWPNPC ---
PATIENT NAME: LUCIO JUDD : 1945 GENDER: FEMALE VISIT DATE: 05/07/2020 DISCHARGE DATE: 05/07/20 1359 VISIT LOCKED DATE TIME: PHYSICIAN: LEVY MEJIA PHYSICIAN PAGER NO: ACTIVE RESOURCE: LEVY MEJIA REASON FOR APPOINTMENT 1. BACK PAIN HISTORY OF PRESENT ILLNESS GENERAL: - 74-YEAR-OLD FEMALE IN FOR CHRONIC PAIN FOLLOW-UP. SHE RATES HER PAIN CURRENTLY AT AN 8 OUT OF 10 AND DESCRIBES IT CONTINUOUS AND ACHING. AT LAST CLINIC VISIT PATIENT MEDICATION WAS INCREASED AND SHE ADMITS TODAY THAT THIS HAS BEEN BENEFICIAL. FALL RISK SCREENING: SCREENING DECEMBER FELL OUT OF BED REACHING FOR THE PHONE. PAIN SCREENING: PATIENT HAS A COMPLAINT OF ACUTE OR CHRONIC PAIN :YES LOCATION OF PAIN:LEFT HIP, BACK INTENSITY OF PAIN (SCALE OF 1 TO 10):8 WHAT DOES YOUR PAIN FEEL LIKE:CONTINOUS, ACHING DURATION:CONTINOUS PAIN IS DECREASED BY:SITTING NURSING NOTE: -. PAIN CENTER INTAKE QUESTIONS: DO YOU HAVE A HISTORY OF MRSA? :NO DO YOU TAKE A BLOOD THINNERS? :NO DO YOU HAVE ANY BLEEDING DISORDERS? :NO ANY NEW NUMBNESS OR WEAKNESS IN YOUR LEGS OR ARMS? :NO ANY PACEMAKER,DEFIBRILLATOR, OR DORSAL COLUMN STIMULATOR? :NO DO YOU HAVE ANY RASHES OR OPEN SORES? :NO ARE YOU ALLERGIC TO IV DYE? :NO ARE YOU DIABETIC? :NO ANY NEW PROBLEMS WITH YOUR MEDICATIONS? :NO HAVE YOU RECEIVED A VACCINE IN THE PAST 30 DAYS? :NO DO YOU PLAN TO RECEIVE A VACCINE IN THE NEXT 21 DAYS? :NO DO YOU NEED ANY PRESCRIPTION? :NO DO YOU TAKE ANY IMMUNOSUPPRESSIVE MEDICATIONS? :NO DO YOU HAVE ANY KIDNEY OR LIVER DISEASE? :NO IS THERE A CHANCE YOU COULD BE ? :NO ARE YOU BREAST FEEDING? :NO CURRENT MEDICATIONS TAKING CENTRUM SILVER - TABLET DIRECTED ORALLY TAKING VITAMIN D3 10 MCG (400 UNIT) TABLET 1 TABLET ORALLY ONCE A DAY TAKING COQ-10 100 MG CAPSULE 2 CAPSULE WITH A MEAL ORALLY ONCE A DAY TAKING VITAMIN B-6 100 MG TABLET 1 TABLET ORALLY ONCE A DAY TAKING LISINOPRIL 20 MG TABLET TAKE 1 TABLET EVERY DAY TAKING SIMVASTATIN 20 MG TABLET TAKE 1 TABLET IN THE EVENING TAKING MAGNESIUM 300 MG CAPSULE 1 CAPSULE WITH A MEAL ORALLY ONCE A DAY, NOTES: NOT SURE OF DOSE TAKING ADVIL 200 MG TABLET 1 TABLET WITH FOOD OR MILK NEEDED ORALLY THREE TIMES A DAY TAKING SYNTHROID 100 MCG TABLET 1 TABLET IN THE MORNING ON AN EMPTY STOMACH ORALLY ONCE A DAY; LOWELL TAKING MELATONIN 5 MG TABLET 1 TABLET IN THE EVENING ORALLY ONCE A DAY TAKING HYDROCODONE-ACETAMINOPHEN 7.5-325 MG TABLET 1 TABLET NEEDED ORALLY EVERY 6 HRS PRN MDD4 TAKING SERTRALINE HCL 100 MG TABLET 1 TABLET ORALLY DAILY NOT-TAKING TIZANIDINE HCL 2 MG TABLET 1 TABLET NEEDED ORALLY THREE TIMES A DAY NOT-TAKING TYLENOL EXTRA STRENGTH 500 MG TABLET 1 TABLET WITH ANOTHER 1 1/2 TAB OF RAPID RELEIF ORALLY DAILY NOT-TAKING DICLOFENAC SODIUM 50 MG TABLET DELAYED RELEASE 1 TABLET ORALLY TWICE A DAY MEDICATION LIST REVIEWED AND RECONCILED WITH THE PATIENT PAST MEDICAL HISTORY HYPOTHYROIDISM HYPERTENSION HYPERLIPIDEMIA INSOMNIA HISTORY OF HYPERTHYROIDISM, NOW S/P RADIOACTIVE IODINE 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 RIGHT SHOULDER STIFFNESS/PAIN ALLERGIES SULFA (FOR ALLERGY USE ONLY): RASH - ALLERGY SURGICAL HISTORY BILATERAL CARPEL TUNNEL SURGERY 1999 BILATERAL MENISCUS KNEE SURGERIES HYSTERECTOMY DUE TO PROLAPSE BILATERAL BUNIONECTOMIES TOTAL RKA 2016 FAMILY HISTORY FATHER: MOTHER: SON(S): DAUGHTER(S): ALIVE 1 SISTER(S) . 1 SON(S) , 2 DAUGHTER(S) . DENIES ANY FAMILY HISTORY OF CANCER. SON 01/2020. HOSPITALIZATION/MAJOR DIAGNOSTIC PROCEDURE SURGERY RELATED REVIEW OF SYSTEMS CONSTITUTIONAL: ANY RECENT FEVER NO . CHILLS NO . WEIGHT CHANGE OF UNKNOWN REASONS NO . GASTROENTEROLOGY: NEW UNEXPLAINABLE CHANGES IN BOWEL CONTROL NO . CONSTIPATION NO . GENITOURINARY: ANY NEW CHANGE IN BLADDER CONTROL? NO . NEUROLOGY: NEW ONSET DIZZINESS OR NEUROLOGICAL CHANGES NOT MENTIONED NO . NEW NUMBNESS OR PAIN PATTERNS NOT MENTIONED AND PERTINENT TO TODAY'S VISIT NO . CARDIOLOGY: NEW CHEST PRESSURE NO . PATIENT DENIES NO . RESPIRATORY: UNEXPLAINABLE COUGH NO . NEW SHORTNESS OF BREATH NO . EXAMINATION GENERAL EXAMINATION: GENERALNO ACUTE DISTRESS, WELL NOURISHED AND HYDRATED. PSYCHAPPROPRIATE MOOD AND AFFECT . LUNGS:CLEAR TO AUSCULTATION BILATERALLY, NO WHEEZES, RHONCHI, RALES. HEART:NO MURMURS, REGULAR RATE AND RHYTHM. ASSESSMENTS CHRONIC BILATERAL LOW BACK PAIN - M54.5 (PRIMARY) TREATMENT CHRONIC BILATERAL LOW BACK PAIN NOTES: 74-YEAR-OLD FEMALE IN FOR CHRONIC PAIN FOLLOW-UP. GIVEN PRESENTING SYMPTOMS RECOMMEND CONTINUATION OF CURRENT MEDICATION REGIMEN WITH FOLLOW-UP IN 3 MONTHS. PATIENT HAS EXPRESSED UNDERSTANDING OF AND WAS IN AGREEMENT WITH TREATMENT PLAN. GIVEN TIME TO ASK QUESTIONS AND EXPRESS CONCERNS. , ISTOP REGISTRY REVIEWED AND DEMONSTRATES COMPLLIANCE. (REF # [id number]) BRINGS IN MEDICATIONS WHICH IS APPROPRIATE FOR WHAT WAS DISPENSED. RECENT URINE TOXICOLOGY REVIEWED. NO UNAUTHORIZED MEDICATIONS. NO ILLICIT SUBSTANCES AND PRESCRIBED MEDICATIONS WERE PRESENT. OTHERS REFILL HYDROCODONE-ACETAMINOPHEN TABLET, 7.5-325 MG, 1 TABLET NEEDED, ORALLY, EVERY 6 HRS PRN MDD4, 30 DAYS, 120 PROCEDURE CODES FA211 ESTABILISHED PATIENT [facility] CHARGE DISPOSITION & COMMUNICATION FOLLOW UP 3 MONTHS (REASON: LOW BACK PAIN) ELECTRONICALLY SIGNED BY TANIA OSHEA ON 05/09/2020 AT 08:36 AM EDT DISCLAIMER : THIS IS A VISIT SUMMARY EXTRACTED FROM THE [employer] CHART. IT IS NOT A COPY OF THE [employer] PROGRESS NOTE. RAHULD
== END ==
LOC: M PAIN 13:30
PROVIDERS: ATTEND Family Medicine
DX: M54.5 Low back pain (principal); G89.29 Other chronic pain; E03.9 Hypothyroidism, unspecified; G47.00 Insomnia, unspecified; Z96.651 Presence of right artificial knee joint; Z88.2 Allergy status to sulfonamides; Z79.899 Other long term (current) drug therapy

== ENCOUNTER → 2020-06-28 | Outpatient (CLI) | payer OTHER ==
[~2020-06-28] MED LIST: ISOVUE-300 61% 50ML VIAL As Ordered ONE; LIDOCAINE 1% MDV 20ML VIAL As Ordered ONE; TRIAMCINOLONE ACETONIDE SUSP 40 MG/ML VIAL (J3301) As Ordered ONE
--- NOTE | 2020-06-28 17:26 | REP ---
INDICATION: LT HIP OA W/ PAIN. COMPARISON: None. TECHNIQUE: The procedure was performed under the direct supervision of Dr. Martinez. The benefits and risks including but not limited to pain infection and bleeding and anaphylaxis were explained to the patient and informed consent was obtained. The left femoral neck was localized using fluoroscopic guidance. The skin was prepped and draped in a sterile fashion. 1% lidocaine was used as a local anesthetic. Using fluoroscopic guidance, and last image hold technology, a 22-gauge spinal needle was inserted and advanced to the femoral neck. 0.5 ml of Isovue-300 was injected to verify placement. Six ml of a solution containing 5 ml of 1% Xylocaine and 1 mL of Kenalog 40 mg mg was injected. The needle was then removed. The patient tolerated the procedure well and there were no immediate complications. Less than 6 seconds of fluoro time was utilized for this procedure. FINDINGS: None IMPRESSION: Fluoro guidance for left hip injection. <Electronically signed by Rodney Odom > 06/28/20 1514 <Electronically signed by Melchor Martinez > 06/28/20 [id number]
== END ==
LOC: M RADPRO 11:41
PROVIDERS: ATTEND Orthopaedic Surgery
DX: M16.12 Unilateral primary osteoarthritis, left hip (principal)
CPT/HCPCS: 20610; 77002; J3301; Q9967

== ENCOUNTER → 2020-08-06 | Outpatient (CLI) | payer OTHER ==
--- NOTE | 2020-08-08 04:37 | ECWPNPC ---
PATIENT NAME: LUCIO JUDD : 1945 GENDER: FEMALE VISIT DATE: 08/06/2020 DISCHARGE DATE: 08/06/20 1406 VISIT LOCKED DATE TIME: PHYSICIAN: LEVY MEJIA PHYSICIAN PAGER NO: ACTIVE RESOURCE: LEVY MEJIA REASON FOR APPOINTMENT 1. LOW BACK PAIN HISTORY OF PRESENT ILLNESS GENERAL: HPI 75-YEAR-OLD FEMALE IN FOR CHRONIC PAIN FOLLOW-UP. SHE RATES HER PAIN CURRENTLY A 5 OUT OF 10 AND DESCRIBES IT ACHING AND CONTINUOUS. PATIENT FEELS HER MEDICATIONS ARE HELPFUL AND DENIES MED SIDE EFFECTS AT THIS TIME.. -. FALL RISK SCREENING: SCREENING TRIPPED OVER THE CAT LAST WEEK, NO MEDICAL CARE RECEIVED . PAIN SCREENING: PATIENT HAS A COMPLAINT OF ACUTE OR CHRONIC PAIN :YES LOCATION OF PAIN:LOW BACK, LEFT HIP, LEG(S), KNEES, OTHER: RIGHT BUTTOCK INTENSITY OF PAIN (SCALE OF 1 TO 10):5 WHAT DOES YOUR PAIN FEEL LIKE:ACHING, CONTINOUS DURATION:CONTINOUS PAIN IS INCREASED BY:ACTIVITIES PAIN IS DECREASED BY:USE OF PAIN MEDICATIONS NURSING NOTE: -. PAIN CENTER INTAKE QUESTIONS: DO YOU HAVE A HISTORY OF MRSA? :NO DO YOU TAKE A BLOOD THINNERS? :NO DO YOU HAVE ANY BLEEDING DISORDERS? :NO ANY NEW NUMBNESS OR WEAKNESS IN YOUR LEGS OR ARMS? :NO ANY PACEMAKER,DEFIBRILLATOR, OR DORSAL COLUMN STIMULATOR? :NO DO YOU HAVE ANY RASHES OR OPEN SORES? :NO ARE YOU ALLERGIC TO IV DYE? :NO ARE YOU DIABETIC? :NO ANY NEW PROBLEMS WITH YOUR MEDICATIONS? :NO HAVE YOU RECEIVED A VACCINE IN THE PAST 30 DAYS? :NO DO YOU PLAN TO RECEIVE A VACCINE IN THE NEXT 21 DAYS? :NO DO YOU NEED ANY PRESCRIPTION? :NO DO YOU TAKE ANY IMMUNOSUPPRESSIVE MEDICATIONS? :NO DO YOU HAVE ANY KIDNEY OR LIVER DISEASE? :NO IS THERE A CHANCE YOU COULD BE ? :NO ARE YOU BREAST FEEDING? :NO CURRENT MEDICATIONS TAKING CENTRUM SILVER - TABLET DIRECTED ORALLY TAKING VITAMIN D3 10 MCG (400 UNIT) TABLET 1 TABLET ORALLY ONCE A DAY TAKING COQ-10 100 MG CAPSULE 2 CAPSULE WITH A MEAL ORALLY ONCE A DAY TAKING VITAMIN B-6 100 MG TABLET 1 TABLET ORALLY ONCE A DAY TAKING LISINOPRIL 20 MG TABLET TAKE 1 TABLET EVERY DAY TAKING SIMVASTATIN 20 MG TABLET TAKE 1 TABLET IN THE EVENING TAKING MAGNESIUM 300 MG CAPSULE 1 CAPSULE WITH A MEAL ORALLY ONCE A DAY, NOTES: NOT SURE OF DOSE TAKING ADVIL 200 MG TABLET 1 TABLET WITH FOOD OR MILK NEEDED ORALLY THREE TIMES A DAY TAKING MELATONIN 5 MG TABLET 1 TABLET IN THE EVENING ORALLY ONCE A DAY TAKING SERTRALINE HCL 100 MG TABLET 1 TABLET ORALLY DAILY TAKING SYNTHROID 100 MCG TABLET TAKE 1 TABLET EVERY DAY IN THE MORNING ON AN EMPTY STOMACH TAKING HYDROCODONE-ACETAMINOPHEN 7.5-325 MG TABLET 1 TABLET NEEDED ORALLY EVERY 6 HRS PRN MDD4 TAKING ALEVE 220 MG TABLET 1 TABLET WITH FOOD OR MILK NEEDED ORALLY EVERY 12 HRS NOT-TAKING TIZANIDINE HCL 2 MG TABLET 1 TABLET NEEDED ORALLY THREE TIMES A DAY NOT-TAKING TYLENOL EXTRA STRENGTH 500 MG TABLET 1 TABLET WITH ANOTHER 1 1/2 TAB OF RAPID RELEIF ORALLY DAILY NOT-TAKING DICLOFENAC SODIUM 50 MG TABLET DELAYED RELEASE 1 TABLET ORALLY TWICE A DAY DISCONTINUED SIMVASTATIN 20 MG TABLET TAKE 1 TABLET IN THE EVENING DISCONTINUED LISINOPRIL 20 MG TABLET TAKE 1 TABLET EVERY DAY MEDICATION LIST REVIEWED AND RECONCILED WITH THE PATIENT PAST MEDICAL HISTORY HYPOTHYROIDISM HYPERTENSION HYPERLIPIDEMIA INSOMNIA HISTORY OF HYPERTHYROIDISM, NOW S/P RADIOACTIVE IODINE 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 RIGHT SHOULDER STIFFNESS/PAIN ALLERGIES SULFA (FOR ALLERGY USE ONLY): RASH - ALLERGY SOCIAL HISTORY GENERAL: TOBACCO USE ARE YOU A:NONSMOKER LATEX QUESTIONNAIRE LATEX ALLERGY : HAVE YOU EVER DEVELOPED ANY TYPE OF REACTION AFTER HANDLING LATEX PRODUCTS SUCH RUBBER GLOVES, CONDOMS, DIAPHRAGMS, BALLOONS, SOCKS, OR UNDERWEAR?NO LATEX ALLERGY : HAVE YOU EVER DEVELOPED ANY TYPE OF REACTION DURING OR AFTER DENTAL APPOINTMENT, VAGINAL/RECTAL EXAMINATION, SURGICAL PROCEDURE, OR ANY OTHER EXPOSURE?NO LATEX RISK : HAVE YOU EVER HAD ANY DIFFICULTY BREATHING OR HIVES AFTER EATING OR HANDLING ANY FRUITS, OR VEGETABLES; SUCH KIWI, BANANAS, STONE FRUITS, OR CHESTNUTSNO LATEX RISK : DO YOU HAVE A PREVIOUS PERSONAL HISTORY OF MORE THAN NINE SURGERIES, SPINA BIFIDA, OR REPEATED CATHERIZATIONS? NO LATEX RISK : ARE YOU FREQUENTLY EXPOSED TO LATEX PRODUCTS IN YOUR OCCUPATION?NO DATE ASKED : 08/06/2020 ALCOHOL USE: NO. ALCOHOL SCREENING DID YOU HAVE A DRINK CONTAINING ALCOHOL IN THE PAST YEAR?NO POINTS0 INTERPRETATIONNEGATIVE RECREATIONAL DRUG USE DRUG USE?NO PATIENT DENIES ABUSE OR MISSUSED OF ANY MEDICATION DENIES PATIENT DENIES USE OF ANY ILLEGAL SUBSTANCE INCLUDING MARIJUANA OR COCAINE DENIES CAFFEINE CAFFEINE USE?YES 2 CUP DAILY SEXUAL HX HAD SEX IN THE LAST 12 MONTHS (VAGINAL, ORAL, OR ANAL)?NO HAVE YOU EVER HAD AN STD?NO HIV / HEP-C SCREENING HIV TEST OFFERED TO PATIENT:YES DATE OFFERED:07/05/2019 TEST ACCEPTED:NO HEP-C TEST OFFERED TO PATIENT:NO REASON:PATIENT DECLINED BROCHURE PROVIDED TO PATIENTYES PROTESTANT [id number] NONE LANGUAGE LANGUAGES SPOKEN:BELIZEAN EDUCATION LEVEL OF EDUCATION:COLLEGE LEARNING BARRIERS / SPECIAL NEEDS CHANGE FROM LAST VISIT?NO BARRIERS TO LEARNING?NO HEARING IMPAIRED?NO VISION IMPAIRED?YES COGNITIVELY IMPAIRED?NO :CORRECTIVE LENSES READINESS TO LEARN?YES LEARNING PREFERENCES?NO LEARNING CAPABILITIES PRESENT?YES EMOTIONAL BARRIERS?NO SPECIAL DEVICES?YES :CANE WALKER RAISED TOILET SEAT SOLAR ENERGY TECHNICIAN NEEDED?NO DOMESTIC VIOLENCE STATUS: DO YOU FEEL SAFE IN YOUR ENVIRONMENT?YES OCCUPATION: RETIRED. DIET: REGULAR. EXERCISE: NO REGULAR EXERCISE. MARITAL STATUS: . OTHERS AT HOME: CHILD. - PFS REFERRAL NEEDED?NO CLERGY REFERRAL NEEDED?NO PUBLIC HEALTH REFERRAL NEEDED?NO WAS THE PROVIDER NOTIFIED OF ANY PERTINENT INFO?YES HAS THE PATIENT BEEN EDUCATED REGARDING HIS/HER PLAN OF CARE?YES HAS THE PATIENT BEEN EDUCATED REGARDING PAIN, THE RISK FOR PAIN, THE IMPORTANCE OF EFFECTIVE PAIN MANAGEMENT, AND THE PAIN ASSESSMENT PROCESS?YES ADVANCE DIRECTIVE ADVANCE DIRECTIVE DISCUSSED WITH PATIENT:YES DAUGHTERSHRUTHI REVIEW OF SYSTEMS CONSTITUTIONAL: ANY RECENT FEVER NO . CHILLS NO . WEIGHT CHANGE OF UNKNOWN REASONS NO . GASTROENTEROLOGY: NEW UNEXPLAINABLE CHANGES IN BOWEL CONTROL NO . CONSTIPATION NO . GENITOURINARY: ANY NEW CHANGE IN BLADDER CONTROL? NO . NEUROLOGY: NEW ONSET DIZZINESS OR NEUROLOGICAL CHANGES NOT MENTIONED NO . NEW NUMBNESS OR PAIN PATTERNS NOT MENTIONED AND PERTINENT TO TODAY'S VISIT NO . CARDIOLOGY: NEW CHEST PRESSURE NO . PATIENT DENIES NO . RESPIRATORY: UNEXPLAINABLE COUGH NO . NEW SHORTNESS OF BREATH NO . VITAL SIGNS WT 175.2 LBS, HT 60 IN, BMI 34.21 INDEX, BP 170/84 MM HG, HR 95 /MIN, RR 18 /MIN, TEMP 97.9 F, OXYGEN SAT % 96%, SAFE IN ENV? (Y/N) YES, NA INITIALS AW 1315, REVIEWED BY: VIELKA WILSON. EXAMINATION GENERAL EXAMINATION: GENERALNO ACUTE DISTRESS, WELL NOURISHED AND HYDRATED. PSYCHAPPROPRIATE MOOD AND AFFECT . LUNGS:CLEAR TO AUSCULTATION BILATERALLY, NO WHEEZES, RHONCHI, RALES. HEART:NO MURMURS, REGULAR RATE AND RHYTHM. ASSESSMENTS LUMBAGO WITH SCIATICA, LEFT SIDE - M54.42 (PRIMARY), RISK: (NULL) CHRONIC PRESCRIPTION OPIATE USE - Z79.891 TREATMENT LUMBAGO WITH SCIATICA, LEFT SIDE NOTES: 75-YEAR-OLD FEMALE FOR CHRONIC PAIN FOLLOW-UP. GIVEN PRESENTING SYMPTOMS RECOMMEND CONTINUATION OF CURRENT MEDICATION REGIMEN WITH FOLLOW-UP IN 3 MONTHS. PATIENT HAS EXPRESSED UNDERSTANDING OF AND WAS IN AGREEMENT WITH TREATMENT PLAN. GIVEN TIME TO ASK QUESTIONS AND EXPRESS CONCERNS. [employer] REGISTRY REVIEWED AND DEMONSTRATES COMPLLIANCE. (REF #[id number] ) BRINGS IN MEDICATIONS WHICH IS APPROPRIATE FOR WHAT WAS DISPENSED. RECENT URINE TOXICOLOGY REVIEWED. NO UNAUTHORIZED MEDICATIONS. NO ILLICIT SUBSTANCES AND PRESCRIBED MEDICATIONS WERE PRESENT. CHRONIC PRESCRIPTION OPIATE USE LAB: URINE TEST GROUP [facility] 08/06/2020 1:56:38 PM > HYDROCODONE 08/06/2020 PROCEDURE CODES FA211 ESTABILISHED PATIENT [facility] CHARGE DISPOSITION & COMMUNICATION FOLLOW UP 3 MONTHS (REASON: LOW BACK PAIN ) ELECTRONICALLY SIGNED BY TANIA OSHEA ON 08/07/2020 AT 10:17 AM EDT DISCLAIMER : THIS IS A VISIT SUMMARY EXTRACTED FROM THE [employer] CHART. IT IS NOT A COPY OF THE [email or web address] PROGRESS NOTE. JOVANI
== END ==
LOC: M PAIN 13:30
PROVIDERS: ATTEND Family Medicine
DX: M54.42 Lumbago with sciatica, left side (principal); G89.29 Other chronic pain; E03.9 Hypothyroidism, unspecified; Z88.2 Allergy status to sulfonamides; Z79.899 Other long term (current) drug therapy

== ENCOUNTER → 2020-09-23 | Outpatient (CLI) | payer OTHER ==
[2020-09-23 17:39] LABS: BLOOD UREA NITROGEN 13 MG/DL (7-18); CALCIUM LEVEL 9.8 MG/DL (8.8-10.2); CARBON DIOXIDE LEVEL 29 MEQ/L (21-32); CHLORIDE LEVEL 107 MEQ/L (98-107); CREATININE FOR GFR 0.79 MG/DL (0.55-1.30); GLOMERULAR FILTRATION RATE > 60.0 (>39); GLUCOSE, FASTING 88 MG/DL (70-100); POTASSIUM SERUM 4.6 MEQ/L (3.5-5.1); SODIUM LEVEL 142 MEQ/L (136-145); THYROID STIMULATING HORMONE 0.439 uIU/ML (0.358-3.740)
== END ==
LOC: M PLALAB 15:53
PROVIDERS: ATTEND Family Medicine
DX: E03.9 Hypothyroidism, unspecified (principal); I10 Essential (primary) hypertension
CPT/HCPCS: 36415; 80048; 84443; G0463

== ENCOUNTER → 2020-11-08 | Outpatient (CLI) | payer OTHER | LOC: M PAIN 13:45 | PROVIDERS: ATTEND Anesthesiology | DX: M25.552 Pain in left hip (principal); G89.29 Other chronic pain; E03.9 Hypothyroidism, unspecified; G47.00 Insomnia, unspecified; Z88.2 Allergy status to sulfonamides; Z79.899 Other long term (current) drug therapy ==